=== PATIENT | male | born 1970 | race Caucasian/White ===

== ENCOUNTER 2018-06-12 09:54 | Emergency (ER) | payer OTHER ==
[2018-06-12 10:04] VITALS: BMI 30.1
[2018-06-12] MEDS ORDERED: Alum-Mag Hydrox-Simethicone Susp (30 mL) PO STA (11:19)
[2018-06-12] MEDS ORDERED: Sodium Chloride 0.9% 1,000 ML IV STA (11:20)
--- NOTE | 2018-06-12 11:25 | ED PDOC ---
HPI: Abdomen Time Seen by Provider: 06/12/18 11:21 Chief Complaint (Nursing): Abdominal Pain Chief Complaint (Provider): abdominal pain/throat pain History Per: Patient (48 y/o male h/o Gastritis here with epigastric pain x 3 days associated with vomiting/dizziness/throat pain. Takes prilosec 20 mg daily otherwise. H/o appendectomy.) Past Medical History Reviewed: Historical Data, Nursing Documentation, Vital Signs Vital Signs: Last Vital Signs Temp 98.6 F 06/12/18 10:04 Pulse 64 06/12/18 10:04 Resp 18 06/12/18 10:04 BP 130/84 06/12/18 10:04 Pulse Ox 99 06/12/18 10:04 - Surgical History Surgical History: Appendectomy - Family History Family History: States: Diabetes - Immunization History Hx Tetanus Toxoid Vaccination: No Hx Influenza Vaccination: Yes Hx Pneumococcal Vaccination: No - Home Medications Home Medications: Ambulatory Orders Medication Instructions Recorded Ciprofloxacin HCl [Cipro] 500 mg PO BID #14 tab 10/20/13 Meclizine HCl [Antivert/25] 25 mg PO TID #15 tab 11/05/ Acetaminophen with Codeine 1 tab PO Q6H PRN #10 tab 08/08/15 [Tylenol with Codeine No. 3 300 mg-30 mg] Naproxen [Naprosyn] 500 mg PO BID PRN #15 tablet 08/08/15 Pantoprazole Sodium [Protonix] 40 mg PO DAILY #30 ect 06/12/18 Ranitidine HCl [Zantac 75] 75 mg PO BID PRN #10 tablet 06/12/18 - Allergies Allergies/Adverse Reactions: Allergies Allergy/AdvReac Type Severity Reaction Status Date / Time No Known Allergies Allergy Verified 10/20/13 08:45 Review of Systems ROS Statement: Except As Marked, All Systems Reviewed And Found Negative ENT: Positive for: Throat Pain Gastrointestinal: Positive for: Vomiting Physical Exam - Reviewed Nursing Documentation Reviewed: Yes Vital Signs Reviewed: Yes - Physical Exam Appears: Positive for: Well, Non-toxic, No Acute Distress Head Exam: Positive for: ATRAUMATIC, NORMAL INSPECTION, NORMOCEPHALIC Skin: Positive for: Normal Color, Warm, DRY Eye Exam: Positive for: EOMI, Normal appearance, PERRL ENT: Positive for: Normal ENT Inspection Neck: Positive for: Normal, Painless ROM Cardiovascular/Chest: Positive for: Regular Rate, Rhythm Respiratory: Positive for: CNT, Normal Breath Sounds Gastrointestinal/Abdominal: Positive for: Normal Exam, Soft Back: Positive for: Normal Inspection Extremity: Positive for: Normal ROM Neurological/Psych: Positive for: Awake, Alert, Normal Tone - Laboratory Results Result Diagrams: 06/12/18 11:35 06/12/18 11:35 - ECG ECG Rhythm: Positive for: Sinus Bradycardia (53 BPM; NO ECTOPY; NO ACUTE CHANGES) O2 Sat by Pulse Oximetry: 99 - Progress ED Course And Treament: Maalox 30 ml po x dose Viscous lidocaine 5 ml po x 1 dose Pepcid 20 mg iv x 1 dose NS 1 liter 500 ml per hour x 1 dose Disposition - Clinical Impression Clinical Impression: Gastritis - Patient ED Disposition Is Patient to be Admitted: No - Disposition Referrals: Atif Pederson MD, PhD [Staff Provider] - Disposition: Routine/Home Disposition Time: 12:42 Condition: FAIR Prescriptions: Pantoprazole Sodium [Protonix] 40 mg PO DAILY #30 ect Ranitidine HCl [Zantac 75] 75 mg PO BID PRN #10 tablet PRN Reason: Pain, Moderate (4-7) Instructions: Gastritis (DC) Forms: [facility] ED School/Work Excuse Print Language: [place] CITIZEN
[2018-06-12] MEDS ORDERED: Alum-Mag Hydrox-Simethicone Susp (30 mL) ONE (11:30)
[2018-06-12 11:52] LABS: BASO % 0.4 % (0.0-2.0); EOS % 0.8 % (0.0-4.0); HEMOGLOBIN 15.4 g/dL (12.0-18.0); LYMPH # 1.3 K/uL (1.0-4.3); LYMPH % 22.6 % (20.0-40.0); MEAN CELL VOLUME 90.5 fl (80.0-94.0); MEAN CORPUSCULAR HEMOGLOBIN 31.5 pg (27.0-31.0); MEAN CORPUSCULAR HGB CONC 34.8 g/dL (33.0-37.0); MEAN PLATELET VOLUME 8.5 fl (7.2-11.7); MONO # 0.4 K/uL (0.0-0.8); MONO % 6.3 % (0.0-10.0); NEUT # 4.1 K/uL (1.8-7.0); NEUT % 69.9 % (50.0-75.0); NRBC % 0.1 % (0.0-0.0); RBC 4.9 Mil/uL (4.40-5.90); RED CELL DISTRIBUTION WIDTH 12.8 % (11.5-14.5); WHITE BLOOD COUNT 5.9 K/uL (4.8-10.8)
[2018-06-12 11:57] LABS: ALB/GLOB RATIO 1.1 (1.0-2.1); ALT/SGPT 63 U/L (21-72); AST/SGOT 36 U/L (17-59); BLOOD UREA NITROGEN 18 mg/dl (9-20); CALCIUM 9.5 mg/dL (8.4-10.2); GFR NON-AFRICAN AMERICAN > 60; LIPASE 81 U/L (23-300)
[2018-06-14 10:27] VITALS: BP 128/70; PULSE 76; RESP 16; TEMP 97.6; O2SAT 100
== END 2018-06-12 14:00 | disposition home or self-care (01) ==
LOC: H.ER 09:54
DX: K29.70 Gastritis, unspecified, without bleeding (principal)
CPT/HCPCS: 80053; 83690; 83735; 85025; 96374; 99283; J7030